=== PATIENT | male | born 2000 | race African-American/Black ===

== ENCOUNTER 2022-03-08 18:45 | Emergency (ER) | payer SELFPAY ==
[2022-03-08] MEDS ORDERED: methylPREDNISolone Sod Succinate 125 MG/2 ML INJ IV ONE (19:25)
--- NOTE | 2022-03-08 19:51 | Emergency Department Report ---
HPI - General Chief Complaint: Allergic Reaction Time Seen by Provider: 03/08/22 19:32 - HPI HPI: Patient is a 21-year-old male brought in by EMS for allergic reaction after bee sting to the left ankle that occurred at approximately 4 PM. He denies any past history of anaphylaxis. States shortly after the sting he developed shortness of breath and sensation of his throat closing. He was given 0.3 mg of IM epinephrine by EMS along with Benadryl. ED Review of Systems ROS: Stated complaint: ALLERGIC REACTION Other details as noted in HPI Comment: All other systems reviewed and negative Constitutional: denies: chills, fever Respiratory: shortness of breath. denies: cough, wheezing Cardiovascular: denies: chest pain, palpitations Gastrointestinal: denies: abdominal pain, nausea, diarrhea Musculoskeletal: denies: back pain, joint swelling, arthralgia Skin: pruritus Neurological: denies: headache, weakness, paresthesias Psychiatric: denies: anxiety, depression Physical Exam - Physical Exam Physical Exam: General: Alert and oriented x3, no acute distress Head: Normocephalic, atraumatic Eyes: PERRLA, EOMI ENT: Normal oropharynx, TMs clear Neck: Supple, nontender, no JVD, FROM Cardiac: Regular rate, regular rhythm, no murmurs, gallops or rubs Respiratory: Clear to auscultation bilaterally, no wheezes, rales, normal work of breathing Abdomen: Soft, nontender, nondistended, normal bowel sounds Urogenital: Exam deferred Musculoskeletal: Full range of motion in all extremities, no obvious deformities, no tenderness, normal strength Back: Nontender, no step-offs, Full range of motion Skin: Warm, dry, intact, appropriate for ethnicity, small circular area of erythema to the posterior left ankle Neurological: Cranial nerves II through XII grossly intact Psych: Normal mood and affect ED Medical Decision Making - Medical Decision Making Patient given IV Solu-Medrol. He was observed in the emergency department for several hours with no complications. On final reassessment patient states he is feeling better. Will discharge home with return precautions. Critical care attestation.: If time is entered above; I have spent that time in minutes in the direct care of this critically ill patient, excluding procedure time. ED Disposition Clinical Impression: Allergic reaction to bee sting Disposition: HOME / SELF CARE / HOMELESS Is pt being admited?: No Does the pt Need Aspirin: No Condition: Stable Instructions: Bee, Wasp, or Hornet Sting, Adult Time of Disposition: 22:47
[2022-03-08] MEDS ORDERED: ONDANSETRON 4 MG/2 ML INJ IV ONE (20:07)
[2022-03-08] MEDS ORDERED: ONDANSETRON 4 MG/2 ML INJ ONE (20:08)
[2022-03-08 23:10] VITALS: BP 143/86
== END 2022-03-08 23:10 | disposition home or self-care (01) ==
LOC: ED 18:45
DX: T63.441A Toxic effect of venom of bees, accidental (unintentional), initial encounter (principal); Y92.89 Other specified places as the place of occurrence of the external cause
CPT/HCPCS: 96374; 96375; 99283; J2405; J2930